=== PATIENT | male | born 1975 | race Caucasian/White ===

== ENCOUNTER 2019-05-25 08:17 | Inpatient (IN) ==
--- NOTE | 2019-05-17 08:47 | Anesthesiology Consultation ---
Date of Service May 17, 2019 Assessment & Plan (1) Encounter for pre-operative examination: Chart Review Chart Review: Acceptable Risk for Surgery and Patient seen in Pre Admission Testing Teaching & Discussion Pre-Anesthesia Teaching/Discussion Notes: Instructed NPO after midnight before surgery,except medications with 15 cc of water. Medication instructions provided according to the PAT guidelines. History Surgery Operation Date: 05/25/19 07:45 Proposed Procedures p L4-L5 Decompression and Fusion, Spinal Cord Monitoring - Jake Marino DO Height/Weight Height: 6 ft Weight: 131.5 kg Allergies Allergy/AdvReac Type Severity Reaction Status Date / Time wool Allergy Intermediate ITCHING Verified 05/16/19 13:50 Penicillins Allergy Unknown UNKNOWN/ Verified 05/16/19 13:50 A CHILD Medications Home Medications Medication Instructions Recorded Confirmed Last Taken No Known Home Medications 05/16/19 05/16/19 Unknown Past Medical History Medical History GERD (gastroesophageal reflux disease) controlled with tums prn Intermittent explosive disorder Migraine Obesity Exercise / Class Metabolic Activity III < 4 Walking/Shop/Light housework Past Family History Family History Grandmother (Maternal) Family history of diabetes mellitus Mother Family history of diabetes mellitus Past Surgical History Surgical History History of appendectomy History of surgery URETHRAL DILATION History of tooth extraction Past Anesthesia History No Hx of Anesthesia Complications and No Family Hx of Anesthesia Complications History of PONV No Hx of PONV and No Hx of Motion Sickness Social History Smoking Status: Never smoker Do You Dip or Chew Tobacco: No Hx Alcohol Use: Yes Alcohol type: hard liquor alcohol intake frequency: holidays/special occasions only Hx Substance Use: Yes (HX METH USE 1.5 YEARS AGO*) substance use type: marijuana (INHALATION PRN PAIN) Review of Systems Reflux controlled on tums PRN. Patient denies chest pain, shortness of breath, cough, wheezing, palpitations. Physical Exam Vital Signs VITALS BP 121/78 P 73 TEMP 98.0 SP02 97%RA RESP 18 PHYSICAL Full neck and c-spine range of motion. Full TMJ range of motion. TMD 4 finger breaths Mallampati Score 1 Dentition: missing upper sides/molars Lungs: clear throughout to auscultation Cardiac: regular rate and rhythm, no murmurs noted Spine: normal Carotids: no bruit Extremities: no edema Trimmed painting Testing Laboratory Results 05/17/19 09:00 05/17/19 09:00 PT 9.8 Seconds (9.0-12.0) 05/17/19 09:00 INR 1.0 (0.9-1.1) 05/17/19 09:00 APTT 25.2 Seconds (21.0-31.0) 05/17/19 09:00 Urine Color Dark Yellow 05/17/19 Unknown Urine Appearance Clear (Clear) 05/17/19 Unknown Urine pH 5.5 (4.5-7.5) 05/17/19 Unknown Ur Specific [place] 1.032 (1.000-1.030) H 05/17/19 Unknown Urine Protein Negative (Negative) 05/17/19 Unknown Urine Glucose (UA) 2+ (Negative) H 05/17/19 Unknown Urine Ketones Trace (Negative) H 05/17/19 Unknown Urine Nitrite Negative (Negative) 05/17/19 Unknown Ur Leukocyte Esterase Negative (Negative) 05/17/19 Unknown Blood Type A Positive 05/17/19 09:00 Antibody Screen NEGATIVE 05/17/19 09:00 Electrocardiogram Date: 05/17/19 Findings: + NSR @ (65) Chest X-Ray Date: 05/17/19 Findings: + NAD
--- NOTE | 2019-05-17 09:47 | XRay Report ---
XR chest Pre-admission PA/Lat CLINICAL HISTORY: pat preoperative evaluation COMPARISON STUDY: No previous studies for comparison. FINDINGS: The bones soft tissues and hemidiaphragms are normal. The cardiomediastinal silhouette is n ormal. The lungs are clear. The pulmonary vasculature is normal. IMPRESSION: Negative chest. The above report was generated using voice recognition software. It may contain grammatical, syntax or spelling errors. Electronically signed by: Popeye Chamberlain M.D. 05/17/2019 9:46 AM
[2019-05-17 11:14] LABS: Appearance Urine Clear (Clear); Bilirubin Urine Negative (Negative); Blood Urine Negative (Negative); Color Urine Dark Yellow; Glucose Urine UA 2+ (Negative); Ketones Urine Trace (Negative); Leukocyte Esterase Urine Negative (Negative); Nitrite Urine Negative (Negative); Protein Urine Negative (Negative); Specific Gravity Urine 1.032 (1.000-1.030); Urobilinogen Urine Negative (Negative); pH Urine 5.5 (4.5-7.5)
[2019-05-17 11:16] LABS: Basophils # (auto) 0.04 K/uL (0-0.2); Basophils % (auto) 0.4 %; Eosinophils # (auto) 0.16 K/uL (0-0.5); Eosinophils % (auto) 1.5 %; Hematocrit (blood only) 45.7 % (42-52); Immature Granulocytes # (auto) 0.08 K/uL (0.00-0.02); Immature Granulocytes % (auto) 0.7 %; Lymphocytes # (auto) 3.31 K/uL (1.2-3.4); Lymphocytes % (auto) 30.1 %; Mean Corpuscular Volume 87.9 fL (80-100); Mean Platelet Volume 11.4 fL (7.4-10.4); Monocytes % (auto) 6.4 %; Neutrophils % (auto) 60.9 %; Platelet Count 209 K/uL (130-400); RDW Coefficient of Variation 13.7 % (11.5-14.5); RDW Standard Deviation 43.8 fL (36.4-46.3); White Blood Count 10.99 K/uL (4.8-10.8)
[2019-05-17 11:26] LABS: Calcium 9.5 mg/dl (8.5-10.1); Creatinine Clr Calc Pharmacy 140.6 ml/min; Est GFR (African American) 112.5; Est GFR (Non-African American) 97.1; Potassium 3.4 mmol/L (3.5-5.1)
[2019-05-17 11:28] LABS: Partial Thromboplastin Ratio 0.9; Partial Thromboplastin Time 25.2 Seconds (21.0-31.0); Prothrombin Time 9.8 Seconds (9.0-12.0)
[~2019-05-25 08:17] MED LIST: CLINDAMYCIN PHOS 300 MG/2 ML VIAL IV SCH; LACTATED RINGER'S 1,000 ML IV SCH
[2019-05-25] MEDS ORDERED: ATROPINE SULFATE 0.1 MG/ML 10ML SYR IV PRN (09:03)
[2019-05-25] MEDS ORDERED: MoRPHine SULFATE 10 MG/ML CARP/VIAL IV PRN (09:03)
[2019-05-25] MEDS ORDERED: fentaNYL citrate 100 MCG/2 ML VIAL IV PRN (09:03)
[2019-05-25] MEDS ORDERED: ePHEDrine sulfate 50 MG/ML AMP IV PRN (09:03)
[2019-05-25] MEDS ORDERED: ONDANSETRON INJ 2 MG/ML 2 ML VIAL IV PRN ×2 (09:03→16:10)
[2019-05-25] MEDS ORDERED: fentaNYL citrate 100 MCG/2 ML VIAL ONE ×3 (12:09→13:23)
[2019-05-25] MEDS ORDERED: MIDAZOLAM HCL 1 MG/ML 2ML VIAL ONE (12:09)
--- NOTE | 2019-05-25 12:32 | History & Physical Bridge Note ---
Date of Service May 25, 2019 History & Physical Bridge Note I have examined the patient, reviewed the History & Physical and in the interval since the performance of the History & Physical I have noted the following changes of clinical significance: no changes noted
--- NOTE | 2019-05-25 12:33 | History & Physical Report ---
Date of Service May 25, 2019 Assessment & Plan (1) Lumbar disc herniation with radiculopathy: L4-L5 decompression and fusion Present on Admission?: Yes History of Present Illness Chief Complaint: Back and leg pain Primary Care Provider: NO PCP Is with chronic persistent back and leg pain. After failing extensive course of nonoperative care is here for surgical intervention. Allergies Allergy/AdvReac Type Severity Reaction Status Date / Time wool Allergy Intermediate ITCHING Verified 05/25/19 09:03 Penicillins Allergy Unknown UNKNOWN/ Verified 05/25/19 09:03 A CHILD Home Medications Home Medications Medication Instructions Recorded Confirmed Type No Known Home Medications 05/16/19 05/25/19 History Past Med/Surg History Medical History GERD (gastroesophageal reflux disease) controlled with tums prn Intermittent explosive disorder Migraine Obesity Surgical History History of appendectomy History of surgery URETHRAL DILATION History of tooth extraction Family History Grandmother (Maternal) Family history of diabetes mellitus Mother Family history of diabetes mellitus Social History Preferred Language: [place] [employer] Required: No Smoking Status: Never smoker Do You Dip or Chew Tobacco: No Hx Alcohol Use: Yes Alcohol type: hard liquor Hx Substance Use: Yes (HX METH USE 1.5 YEARS AGO*) substance use type: marijuana (INHALATION PRN PAIN) Physical Exam Physical Exam: Patient is alert and oriented neurologically intact. Results & Data Vital Signs (Past 12 Hours) Vital Signs Temp Pulse Resp Pulse Ox 05/25/19 09:12 36.9 C 66 18 99
[2019-05-25] MEDS ORDERED: BUPIVACAINE/EPINEPHRINE 0.5% MPF 1:200,000 30 ML VIAL ONE (12:40)
[2019-05-25] MEDS ORDERED: BACITRACIN INJ 50,000 UNIT VIAL ONE (12:40)
[2019-05-25] MEDS ORDERED: HYDROmorphone INJ 2 MG/ML SYR/VIAL ONE ×2 (12:41→13:58)
[2019-05-25] MEDS ORDERED: LIDOCAINE HCL 2% 2 ML VIAL/AMP(20MG/ML) INFIL ONE (13:22)
[2019-05-25] MEDS ORDERED: PROPOFOL IV EMULSION 10 MG/ML 20 ML VIAL IV ONE (13:22)
[2019-05-25] MEDS ORDERED: ROCURONIUM BROMIDE 10 MG/ML 5 ML VIAL ONE (13:22)
[2019-05-25] MEDS ORDERED: LARYING-O-JET KIT (LTA) ONE (13:22)
[2019-05-25] MEDS ORDERED: ONDANSETRON INJ 2 MG/ML 2 ML VIAL ONE (13:22)
[2019-05-25] MEDS ORDERED: DEXAMETHASONE SOD INJ 4 MG/ML VIAL ONE (13:22)
[2019-05-25] MEDS ORDERED: METOCLOPRAMIDE HCL INJ 5 MG/ML 2 ML VIAL ONE (13:22)
[2019-05-25] MEDS ORDERED: GLYCOPYRROLATE 0.2 MG/ML VIAL ONE ×2 (13:22→14:35)
[2019-05-25] MEDS ORDERED: NEOSTIGMINE METHYLSULFATE 1 MG/ML 10ML VIAL ONE (13:22)
[2019-05-25] MEDS ORDERED: FLOSEAL HEMOSTATIC MATRIX 10ML TOP ONE (13:59)
[2019-05-25] MEDS ORDERED: KETOROLAC 30 MG/ML VIAL ONE (14:17)
--- NOTE | 2019-05-25 14:41 | Fluoroscopy Report ---
FL lumbar spine 2-3V CLINICAL HISTORY: L5-S1 DECOMP/FUSION COMPARISON STUDY: None FLUOROSCOPY TIME: 14 seconds NUMBER OF FLUOROSCOPIC IMAGES: 2 FINDINGS: Findings consistent with a posterior laminectomy and fusion at the L4-L5 level. Disc spacer is present within the left central aspect of the disc space. IMPRESSION: L4-L5 laminectomy and fusion with disc spacer placement. The above report was generated using voice recognition software. It may contain grammatical, syntax or spelling errors. Electronically signed by: Popeye Chamberlain M.D. 05/25/2019 2:39 PM
--- NOTE | 2019-05-25 14:48 | Operative Report ---
Post Operative Report Pre & Post Diagnosis Operation Date: 05/25/19 13:05 Pre-Op Diagnosis: Lumbar disc herniation with radiculopathy Post-Op Diagnosis: Lumbar disc herniation with radiculopathy Procedure Operation Date: 05/25/19 13:05 Actual Procedures #1 lumbar decompression with medial facetectomy foraminotomy L4-5 on the right. #2 posterior spinal fusion L4-5 per #3 placement posterior instrumentation L4-5 per #4 interbody fusion L4-5 per #5 placement of titanium 15 x 26 mm cage at L4- 5 per #6 placement of local autograft in the posterior lateral gutters per #7 placement Feese collagen sponge combined mass graft in the posterior lateral gutters and ostial amp and interbody space. Surgeon Jake Marino, DO Intermediate Accountant None Estimated Blood Loss 175 Findings See Below Patient is 6 foot tall weighing over 128 kg with a BMI in excess of 38. The patient's body habitus created significant technical difficulty throughout the procedure adding at least 50% increase in operative time and requiring our deepest retractors and longus instruments in order to perform his procedure. Specimens None Indications This is a 44-year-old male presents with above-mentioned diagnosis after failing extensive course of nonoperative care like to go above-mentioned procedure. Description of Procedure Patient was met with identified and informed consent obtained. He was then taken to the operative suite underwent intubation placed in the prone position the Willian table on top of the Marcelo frame. All bony prominences well-padded eyes inspected to ensure no external pressure placed upon but this point the lumbar spine was prepped and draped in normal sterile fashion. Sharp dissection with the assistance of Bovie cautery was performed down to and exposing the lamina transverse processes of L4-5 bilaterally. From a caudal cephalad fashion laminectomy of 4 was performed including medial facetectomy and foraminotomies on the right address a severely compressed exiting L4 nerve root. Massive posterior disc protrusion was noted and removed. This created significant dec ompression. Pedicle screws were then placed in L4 and L5 bilaterally with assistance of fluoroscopy and appropriate size gene placed. By way of a transforaminal approach on the right a complete discectomy was performed endplates curetted to subcortical being bone and a 15 x 26 mm titanium cage tapped in position. The rods were then compressed locked in final position bilaterally. The transverse processes of L4 and 5 bur to subcortical bleeding bone. Infuse collagen sponge master graft local autograft placed in the posterior lateral gutters. 15 round DEVORA drain inserted. Incision was then c losed with 1 Vicryl fascia 2-0 Vicryl substantially and 4 Monocryl for final skin closure. Steri-Strip sterile dressings placed. Patient will continue PACU stable condition. Please note spinal cord monitoring was utilized throughout the procedure no changes noted. I attest to the content of the Intraoperative Record and any orders documented therein. Any exceptions are noted below.
[2019-05-25] MEDS ORDERED: ESMOLOL HCL INJ 10 MG/ML 10ML VIAL IV ONE (14:57)
--- NOTE | 2019-05-25 15:28 | Anesthesiology Progress Note ---
Date of Service May 25, 2019 Anesthesia Post Procedure Vital Signs Vital Signs: Temp Pulse Pulse Resp BP Pulse Ox 05/25/19 15:20 97.0 F L 54 L 10 L 121/80 99 05/25/19 15:10 97.0 F L 54 L 9 L 125/79 99 05/25/19 15:00 97.0 F L 68 18 140/88 100 05/25/19 14:50 97.0 F L 72 16 141/79 H 100 05/25/19 14:42 97.0 F L 80 14 148/96 H 98 05/25/19 09:12 98.4 F 66 18 99 Pain Intensity Lower Back: Pain Intensity: 5 Transfer of Care Handoff Completed per policy Notes Mental Status: alert / awake / arousable and participated in evaluation Patient Amnestic to Procedure: Yes Nausea / Vomiting: adequately controlled Pain: adequately controlled Airway Patency, RR, SpO2: stable & adequate BP & HR: stable & adequate Hydration State: stable & adequate Anesthetic Complications: no major complications apparent and Pt Satisfied with anesthetic care
[2019-05-25] MEDS ORDERED: LORazepam 0.5 MG TAB PO PRN (16:10)
[2019-05-25] MEDS ORDERED: PROMETHAZINE HCL 12.5 MG in SODIUM CHLORIDE 0.9% 50 ML IV PRN (16:10)
[2019-05-25] MEDS ORDERED: ACETAMINOPHEN 500 MG TAB PO PRN (16:10)
[2019-05-25] MEDS ORDERED: BISACODYL 10 MG SUPP PR PRN (16:10)
[2019-05-25] MEDS ORDERED: FAMOTIDINE 20 MG TAB PO PRN (16:10)
[2019-05-25] MEDS ORDERED: LORazepam 0.5 MG/1 ML VIAL IV PRN (16:10)
[2019-05-25] MEDS ORDERED: ACETAMINOPHEN 1,000 MG/100 ML VIAL IV PRN (16:10)
[2019-05-25] MEDS ORDERED: METOCLOPRAMIDE HCL INJ 5 MG/ML 2 ML VIAL IV PRN (16:10)
[2019-05-25] MEDS ORDERED: DO NOT ADMINISTER FLU VACCINE PRN (16:10)
[2019-05-25] MEDS ORDERED: DO NOT ADMINISTER PNEUMOCOCCAL VACCINE PRN (16:10)
[2019-05-25] MEDS ORDERED: ALUMINUM/MAGNESIUM SUSP 30 ML UDC PO PRN (16:10)
[2019-05-25] MEDS ORDERED: TRAMADOL HCL 50 MG TABLET PO PRN (16:10)
[2019-05-25] MEDS ORDERED: SOD PHOSPHATE/SOD BIPHOSPHATE ENEMA 132 ML BTL PR PRN (16:10)
[2019-05-25] MEDS ORDERED: ONDANSETRON 4 MG TAB PO PRN (16:10)
[2019-05-25] MEDS ORDERED: MAGNESIUM HYDROXIDE SUSP 30 ML UDC PO PRN (16:10)
[2019-05-25] MEDS ORDERED: HYDROmorphone INJ 0.5 MG/0.5 ML SYR IV PRN (16:10)
[2019-05-25] MEDS: LACTATED RINGER'S 1,000 ML IV SCH (17:12)
[2019-05-25] MEDS: KETOROLAC 30 MG/ML VIAL IV SCH ×2 (17:14→22:11)
[2019-05-25] MEDS: CLINDAMYCIN 600 MG in DEXTROSE 5% 50 ML IV SCH (19:40)
[2019-05-25] MEDS: DOCUSATE SODIUM/SENNA 50/8.6MG TAB PO SCH (21:19)
[2019-05-26] MEDS: LACTATED RINGER'S 1,000 ML IV SCH ×2 (00:27→05:41)
[2019-05-26] MEDS: KETOROLAC 30 MG/ML VIAL IV SCH ×2 (04:02→10:09)
[2019-05-26] MEDS: CLINDAMYCIN 600 MG in DEXTROSE 5% 50 ML IV SCH (04:29)
[2019-05-26] MEDS: POLYETHYLENE (MIRALAX) 17 GM PACK PO SCH ×4 (05:37→23:40)
[2019-05-26 06:07] LABS: Basophils # (auto) 0.01 K/uL (0-0.2); Basophils % (auto) 0.1 %; Eosinophils # (auto) 0.02 K/uL (0-0.5); Eosinophils % (auto) 0.1 %; Hematocrit (blood only) 38.3 % (42-52); Hemoglobin 13.6 g/dL (14.0-18.0); Immature Granulocytes # (auto) 0.04 K/uL (0.00-0.02); Immature Granulocytes % (auto) 0.3 %; Lymphocytes % (auto) 13.2 %; Mean Corpuscular Hgb Conc 35.5 g/dL (32-36); Mean Platelet Volume 10.7 fL (7.4-10.4); Monocytes # (auto) 0.96 K/uL (0.11-0.59); Neutrophils # (auto) 10.84 K/uL (1.4-6.5); Neutrophils % (auto) 79.3 %; Platelet Count 202 K/uL (130-400); RDW Coefficient of Variation 13.7 % (11.5-14.5); RDW Standard Deviation 43.8 fL (36.4-46.3); White Blood Count 13.67 K/uL (4.8-10.8)
[2019-05-26 06:37] LABS: BUN Creatinine Ratio 10.6 (10-20); Calcium 8.7 mg/dl (8.5-10.1); Creatinine Clr Calc Pharmacy 120.3 ml/min; Est GFR (African American) 94.4; Est GFR (Non-African American) 81.5; Potassium 3.8 mmol/L (3.5-5.1)
--- NOTE | 2019-05-26 09:54 | Orthopedic Progress Note ---
Date of Service May 26, 2019 Assessment & Plan (1) Lumbar disc herniation with radiculopathy: This time will initiate physical therapy monitor his DEVORA output anticipate discharge home Tuesday or Tuesday. Present on Admission?: Yes Subjective Back pain controlled right leg symptoms markedly improved. Physical Exam Physical Exam: Patient is comfortable sitting up in bed is good strength testing. Results & Data Vital Signs (Past 12 Hours) Vital Signs Temp Pulse Pulse Pulse Resp BP Pulse Ox 05/26/19 07:07 36.6 C 57 L 57 L 18 116/74 98 05/26/19 03:55 36.7 C 62 16 112/68 99 05/25/19 22:50 36.7 C 85 16 113/65 95
[2019-05-26] MEDS: OXYCODONE HCL IR 5 MG TAB (IMMEDIATE RELEASE) PO PRN ×3 (10:11→21:49)
[2019-05-26] MEDS: DOCUSATE SODIUM/SENNA 50/8.6MG TAB PO SCH (21:50)
[2019-05-27] MEDS: OXYCODONE HCL IR 5 MG TAB (IMMEDIATE RELEASE) PO PRN ×3 (02:43→11:45)
[2019-05-27] MEDS: POLYETHYLENE (MIRALAX) 17 GM PACK PO SCH (06:19)
--- NOTE | 2019-05-27 08:16 | Orthopedic Progress Note ---
Date of Service May 27, 2019 Assessment & Plan (1) Lumbar disc herniation with radiculopathy: Patient is doing quite well. He wants to go home today. Will DC DEVORA drain dressing change. Continue with pain control. DVT prophylaxis upon discharge in the form of ERNST hose. All questions have been reviewed in detail. Supervising Physician Co-Signing Physician Notes Dr. Jake Marino Subjective Back pain controlled right leg symptoms markedly improved. Review of Systems Review of Systems: All systems reviewed & are unremarkable except as noted in HPI & below Physical Exam Physical Exam: Sitting in bed. No obvious distress. Lower extremities are neurovascular intact. Calves are soft nontender bilaterally. Strength is intact bilateral lower extremities. Lumbar dressing is clean dry and intact. Results & Data Vital Signs (Past 12 Hours) Vital Signs Temp Pulse Pulse Resp BP Pulse Ox 05/27/19 06:53 37.4 C 90 18 142/84 H 97 05/27/19 00:12 37.4 C 77 17 133/77 98
--- NOTE | 2019-05-27 08:18 | Discharge Summary ---
Date of Service May 27, 2019 Admission HPI Per Admitting Provider Is with chronic persistent back and leg pain. After failing extensive course of nonoperative care is here for surgical intervention. Admission Exam (Per Admitting) Constitutional WD/WN, vitals as above well developed Eyes PERRL, conjunctivae normal, anicteric sclerae ENMT external ear and nose normal, oropharynx normal Neck normal visual inspection Respiratory normal respiratory effort Cardiovascular RRR, no murmur, no edema Gastrointestinal (Abdomen) Inspection/Auscultation: abdomen normal to inspection Musculoskeletal no cyanosis or clubbing, extremities motor strength 5/5 Skin normal turgor Neurologic patellar DTR's 2+ bilat, sensation intact CN's II-XI intact bilaterally Psychiatric A+Ox3, euthymic affect Discharge Data Consultations 05/25/19 16:10 Consult Case Management - Discharge Planning Routine Procedures Performed Operation Date: 05/25/19 13:05 Actual Procedures p L4-L5 Decompression and Fusion, Spinal Cord Monitoring(Not Applicable) - Jake Marino, DO Hospital Course (1) Lumbar disc herniation with radiculopathy: Patient is doing quite well. He wants to go home today. Will DC DEVORA drain dressing change. Continue with pain control. DVT prophylaxis upon discharge in the form of ERNST hose. All questions have been reviewed in detail. Patient had an uncomplicated hospital course. He is passing flatus and had a bowel movement prior to discharge. He is progressing in physical therapy and ambulating in the hallways. Pain is controlled. Discharge Instructions ACTIVITY RECOMMENDATIONS: SELF CARE INSTRUCTIONS AFTER THORACIC/LUMBAR FUSIONS 1. You may walk to your tolerance. It is good exercise for your legs and back. Expect some back and intermittent leg aches and pains. 2. You may perform "counter-top" level activities (make a sandwich, jeanette with a project, etc.). 3. No bending or lifting of more than 10 pounds or back twisting of any nature (roll like a log when turning in bed). 4. You may ride in a car for 20-30 minutes at a time. No driving until after your first visit with your doctor. 5. Frequent changes of position and restricting sitting to 30 minutes at a time will help limit the amount of back spasms and stiffness you may experience. 6. You may discontinue the use of ambulatory aids (cane, crutches, etc.) once your strength and confidence allow. 7. You may public health inspector the shower and let water strike your incision when you arrive home at least once daily. Do not take a tub bath, sit in a hot tub or go into a swimming pool until after your first recheck in the office. SPECIAL CARE INSTRUCTIONS: VERY IMPORTANT TO READ AND REVIEW A. Your surgical incision has been closed with a cosmetic suture under the skin that will dissolve in about 6 weeks. In 14 days, you can use a pair of clean scissors and cut the suture that is left outside of the skin at the ends of your incision. 1. The small skin tapes can be removed 7 days after surgery if they have not fallen off by that point. 2. You may keep the wound open to air as much as possible to promote healing after post-op day number 5 unless told otherwise by your doctor. 3. If you think the wound looks like it is becoming infected (redness or worsening drainage) and/or you are experiencing fever, chill or worsening back pain and muscle spasms, contact the office so that we may evaluate you as soon as possible. B. Complications are uncommon, but please contact us if you have any signs or symptoms of: 1. wound infection (fever higher than 102.5 degrees F, redness, separation of wound, drainage, or increasing pain from the incision) 2. blood clots in legs (pain, swelling, redness and warmth in legs) 3. urinary tract infection (fever higher than 102.5 degrees F, burning upon urination or increased frequency of urination) 4. nerve problems (inability to walk on your toes or heels, numbness, loss of bowel or bladder control) 5. any other symptoms that concern you C. Please call the office at if you have any concerns or questions about your operation or recovery. D. No smoking! Smoking drastically decreases the chance of a solid fusion. E. Do not take any anti-inflammatory medications (Indocin, Advil, Motrin, Aspirin, Naprosyn, etc.) as these may inhibit the chance of a solid fusion. Tylenol is okay to take for pain. MANAGING PAIN AFTER SPINAL SURGERY 1. Narcotic medication is intended for short-term use and will be provided for surgical pain. Surgical pain usually lasts for a period of 4-6 weeks. Narcotic medication includes Percocet, Vicodin, Darvocet, Tylenol #3 or Lortab. 2. Longer-term pain is more appropriately treated with non-narcotic medication such as Tylenol ES. 3. Muscle spasm is not appropriately treated with narcotics. Muscle relaxers such as Soma, Flexeril or Skelaxin can be used along with Tylenol ES. 4. Remember that we all live with some "aches and pains". This is not unusual or uncommon after an injury or as we get older. a. Back pain is expected and may include muscle spasms for 4 to 6 weeks after surgery. The pain should gradually improve. If the pain worsens for no apparent reason, please contact the office. b. Intermittent leg pain may also be experienced and should not be concerned about unless it worsens for no apparent reason. If so, please contact the office. 5. We will provide appropriate medication within the normal guidelines of their prescribed use. We will also be very cautious and aware of potential abuse and extended duration of patients' medication needs. a. Pain medications are for your comfort and to assist with sleep and rest so that the tissue can heal. They are not provided in order to return to normal activity and should not be used through the day. To do so or worsening pain at night can result from ongoing tissue damage and development of tolerance to the prescribed medicine. 6. Please allow 2-3 days to process refills. Prescriptions will not be mailed but must be picked up at the office. FOLLOW UP VISIT: Keep your scheduled follow-up appointment. Any questions, please call the office at . Supervising Physician Co-Signing Physician Notes Dr. Jake Marino
== END 2019-05-27 12:45 | disposition home or self-care (01) | DRG 455 ==
LOC: ASU 08:17 → 3E 14:51
DX: M51.16 Intervertebral disc disorders with radiculopathy, lumbar region